=== PATIENT | male | born 1935 | race Caucasian/White ===

== ENCOUNTER 2022-08-16 14:59 | Emergency (ER) | payer MEDICARE, OTHER, SELFPAY ==
[2022-08-16 15:32] VITALS: BP 176/75; PULSE 73; RESP 15; TEMP 36.4; O2SAT 96; BMI 29.0
[2022-08-16 15:34] VITALS: BP 176/75; PULSE 70; RESP 15; TEMP 36.4; O2SAT 95
== END 2022-08-16 15:40 | disposition left against medical advice (07) ==
PROVIDERS: Emergency Provider Emergency Medicine
CPT/HCPCS: 99281